=== PATIENT | female | born 2000 | race Caucasian/White ===

== ENCOUNTER 2020-06-03 14:25 | Outpatient (CLI) | payer SELFPAY ==
--- NOTE | 2020-06-03 14:55 | US_ITS ---
WS: [id number] INDICATION: Right lower quadrant pain. Appendicitis. TECHNIQUE: Ultrasound right lower quadrant FINDINGS: Ultrasound right lower quadrant. No evidence of acute appendicitis. No cystic or solid lesi ons. No noncompressible bowel. US/US appendix [id number] IMPRESSION: No evidence of acute appendicitis.
== END 2020-06-03 14:26 | disposition home or self-care (01) ==
LOC: RAD 14:36
PROVIDERS: Family Provider Family Medicine; PCP Family Medicine; Visit Provider Family Medicine
DX: R10.31 Right lower quadrant pain (principal)
CPT/HCPCS: 76705

== ENCOUNTER 2023-07-29 07:26 | Emergency (ER) | payer OTHER, SELFPAY ==
[2023-07-29 07:37] VITALS: BP 132/96; PULSE 73; RESP 14; O2SAT 96
[2023-07-29 08:09] LABS: Amphetamines Screen Urine Negative (Negative); Barbiturates Screen Urine Negative (Negative); Benzodiazepines Screen Urine Negative (Negative); Cocaine Screen Urine Negative (Negative); Opiate Screen Urine Negative (Negative); PCP Screen Urine Negative (Negative); THC Screen Urine Negative (Negative)
--- NOTE | 2023-07-29 08:21 | ED_ITS ---
HPI - Medical Clearance General: Chief complaint: Medical Clearance Stated complaint: WORKERS COMP Time Seen by Provider: 07/29/23 07:28 History of Present Illness: Patient seen in the emergency room for administrative work comp issue. There is a discrepancy in medication count employer request urine drug screen. Physical Exam Narrative: EXAM NARRATIVE: Patient awake alert no signs of altered mental status, no evidence of being under the influence of substance. Course Vital Signs: Vital signs: Vital Signs Pulse Rate 73 07/29/23 07:37 Respiratory Rate 14 07/29/23 07:37 Blood Pressure 132/96 07/29/23 07:37 Pulse Oximetry 96 07/29/23 07:37 Oxygen Delivery Me thod Room Air 07/29/23 07:37 MDM - Medical Clearance Medical Decision Making Urine drug screen negative. Incidentally while we are waiting for the result of the found the medication that was missing it was lodged between modules within the drawer of the Pyxis. Lab Data Laboratory Results Urine Opiates Screen Negative ng/mL (Negative) 07/29/23 07:48 Ur Barbiturates Screen Negative ng/mL (Negative) 07/29/23 07:48 Ur Phencyclidine Scrn Negative ng/mL (Negative) 07/29/23 07:48 Ur Amphetamines Screen Negative ng/mL (Negative) 07/29/23 07:48 U Benzodiazepines Scrn Negative ng/mL (Negative) 07/29/23 07:48 Urine Cocaine Screen Negative ng/mL (Negative) 07/29/23 07:48 U Marijuana (THC) Screen Negative ng/mL (Negative) 07/29/23 07:48 No radiology studies performed this visit Discharge Plan Discharge Patient Disposition: Home Clinical Impression: Worker's compensation claim administrative problem Condition: Stable Discharge Orders: Discharge ED (Routine); Ordered 07/29/23 Ordered By: Tony Cates Referrals: Bertrand Thayer MD [Primary Care Provider] - Patient Instructions: Opioid Safety, Pain Management Activity Restrictions/Additional Instructions: Thank you for choosing [facility] for your healthcare needs today. It is very important that you follow up as instructed or that you return to the Emergency Department should you have concerns or if your condition changes or worsens in any way. You were seen today for discrepancy in benzodiazepine count in the Pyxis. Coding Level of Care Code ED Medical Assistant Per Diem for Kyle Winchester
== END 2023-07-29 08:42 | disposition home or self-care (01) ==
PROVIDERS: Emergency Provider Family Medicine; PCP Family Medicine
DX: Z02.89 Encounter for other administrative examinations (principal); Y99.0 Civilian activity done for income or pay
CPT/HCPCS: 80306; 99283